=== PATIENT | female | born 1990 | race Caucasian/White ===

== ENCOUNTER 2016-09-27 16:33 | Emergency (ER) | payer OTHER ==
[~2016-09-27] VITALS: Ht 170.2 cm; Wt 59.9 kg
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
[2016-09-27 19:45] VITALS: BP 141/82
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
== END 2016-09-27 19:57 ==
LOC: ERH 16:33
DX: S60.211A Contusion of right wrist, initial encounter (principal); S10.91XA Abrasion of unspecified part of neck, initial encounter; Y04.8XXA Assault by other bodily force, initial encounter; Y92.9 Unspecified place or not applicable; Y93.9 Activity, unspecified
CPT/HCPCS: 73110-RT